=== PATIENT | male | born 1980 ===

== ENCOUNTER 2017-11-13 01:50 | Emergency (ER) | payer SELFPAY ==
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
[2017-11-13] MEDS ORDERED: ADRENALIN ONE (06:16)
== END 2017-11-13 04:20 ==
LOC: ED 01:50
DX: I46.9 Cardiac arrest, cause unspecified (principal)
CPT/HCPCS: 92950; 99285; J0171